=== PATIENT | female | born 1985 | race Caucasian/White ===

== ENCOUNTER 2017-01-17 06:50 | Emergency (ER) | payer MEDICAID ==
[2017-01-17 06:57] VITALS: RESP 18; TEMP 98.4
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
[2017-01-17] MEDS ORDERED: IBUPROFEN 200 MG TAB PO ONE (07:53)
[2017-01-17 08:49] LABS: COLOR PALE YELLOW; LEUKOCYTE ESTERASE,URINE NEGATIVE (NEGATIVE); MUCUS TRACE /lpf (NONE-1+); NITRITE,URINE NEGATIVE (NEGATIVE)
[2017-01-17 08:51] LABS: RBC,URINE NONE SEEN /hpf (0-3); WBC,URINE NONE SEEN /hpf (0-3)
[2017-01-17 09:07] VITALS: BP 113/65; PULSE 96; O2SAT 96
== END 2017-01-17 09:04 | disposition home or self-care (01) ==
LOC: EEVIPCON 06:50
DX: T74.21XA Adult sexual abuse, confirmed, initial encounter (principal); F17.200 Nicotine dependence, unspecified, uncomplicated